=== PATIENT | male | born 1950 | race Caucasian/White ===

== ENCOUNTER → 2023-11-12 07:33 | Outpatient (REF) | payer MEDICARE, OTHER, SELFPAY ==
[2023-11-12 08:30] LABS: % Basophils 0.7 % (0-2); % Eosinophils 3.5 % (0-6); % Immature Granulocytes 0.3 % (0-0.5); % Lymphocytes 12.7 % (20.5-51.1); % Monocytes 10.4 % (1.7-9.3); % Neutrophils 72.4 % (42.2-75.2); Absolute Eosinophils 0.2 10^3/uL (0-0.7); Absolute Lymphocytes 0.7 10^3/uL (1.2-3.4); Absolute Monocytes 0.6 10^3/uL (0.1-0.6); Absolute Neutrophils 4.2 10^3/uL (1.4-6.5); Hematocrit 37.8 % (39.0-52.0); Hemoglobin 13.5 g/dL (13.0-18.0); Mean Corp Hgb Conc. 35.7 g/dL (33.0-37.0); Mean Corpuscular Hgb 29.9 pg (27.0-31.0); Mean Corpuscular Volume 83.6 fL (80.0-94.0); Mean Platelet Volume 10.7 fL (7.4-10.4); Nucleated Red Blood Cells % 0 % (-); Platelet Count 218 10^3/uL (130-400); Red Blood Cell Count 4.52 10^6/uL (4.70-6.10); Red Cell Dist. Width 12.4 % (11.5-14.5); White Blood Cell Count 5.8 10^3/uL (4.8-10.8)
[2023-11-12 09:19] LABS: ALT (SGPT) 71 U/L (0-50); AST (SGOT) 39 U/L (17-59); Alkaline Phosphatase 123 U/L (38-126); Blood Urea Nitrogen 83 mg/dl (9-20); Carbon Dioxide 17 mmol/L (22-30); Chloride 105 mmol/L (98-107); Glucose 121 mg/dl (70-99); HDL Cholesterol 54 mg/dl; LDL Cholesterol, Calculated 73 mg/dl; Potassium 4.6 mmol/L (3.5-5.1); Sodium 135 mmol/L (135-145); Total Bilirubin 0.7 mg/dl (0.2-1.3); Total Cholesterol 140 mg/dl (50-199); Total Protein 7.5 g/dl (6.3-8.2); Triglyceride 65 mg/dl (10-149); Very Low Density Lipoprotein 13 mg/dl (0-30); eGFR 21.87
== END ==
LOC: REG 07:33
PROVIDERS: ATTENDING PHYSICIAN Physician Assistant
DX: R42 Dizziness and giddiness (principal); I95.1 Orthostatic hypotension; I10 Essential (primary) hypertension; E78.00 Pure hypercholesterolemia, unspecified
CPT/HCPCS: 36415; 80053; 80061; 85025

== ENCOUNTER 2023-11-13 20:48 | Inpatient (IN) | payer MEDICARE, OTHER, SELFPAY ==
[2023-11-13] VITALS (7 sets, daily range): BP systolic 147–166; BP diastolic 80–89; BMI 21.2
[2023-11-13 17:06] LABS: % Basophils 0.6 % (0-2); % Eosinophils 2.4 % (0-6); % Immature Granulocytes 0.3 % (0-0.5); % Lymphocytes 14.7 % (20.5-51.1); % Monocytes 11.6 % (1.7-9.3); % Neutrophils 70.4 % (42.2-75.2); Absolute Eosinophils 0.2 10^3/uL (0-0.7); Absolute Lymphocytes 0.9 10^3/uL (1.2-3.4); Absolute Monocytes 0.7 10^3/uL (0.1-0.6); Absolute Neutrophils 4.4 10^3/uL (1.4-6.5); Hematocrit 35.5 % (39.0-52.0); Hemoglobin 12.9 g/dL (13.0-18.0); Mean Corp Hgb Conc. 36.3 g/dL (33.0-37.0); Mean Corpuscular Hgb 29.6 pg (27.0-31.0); Mean Corpuscular Volume 81.4 fL (80.0-94.0); Mean Platelet Volume 10.5 fL (7.4-10.4); Nucleated Red Blood Cells % 0 % (-); Platelet Count 228 10^3/uL (130-400); Red Blood Cell Count 4.36 10^6/uL (4.70-6.10); Red Cell Dist. Width 12.4 % (11.5-14.5); White Blood Cell Count 6.2 10^3/uL (4.8-10.8)
[2023-11-13 17:18] LABS: ALT (SGPT) 67 U/L (0-50); AST (SGOT) 38 U/L (17-59); Albumin 4.4 g/dl (3.5-5.0); Alkaline Phosphatase 138 U/L (38-126); Blood Urea Nitrogen 81 mg/dl (9-20); Calcium 9.4 mg/dl (8.4-10.2); Carbon Dioxide 14 mmol/L (22-30); Chloride 106 mmol/L (98-107); Glucose 119 mg/dl (70-99); Potassium 4.3 mmol/L (3.5-5.1); Sodium 130 mmol/L (135-145); Total Bilirubin 0.6 mg/dl (0.2-1.3); Total Protein 7.7 g/dl (6.3-8.2); eGFR 22.81
--- NOTE | 2023-11-13 18:01 | ED.GENMED ---
History of Present Illness
General
Chief Complaint: Abnormal Lab Value
Time Seen by Provider: 11/13/23 18:01
Travel History
Have you had any contact with someone who has COVID-19?: No
Do you have any symptoms of coronavirus? Fever > 100 degrees, chills, cough, shortness of breath, sore throat, loss of taste or smell, muscle aches, or headache?: No
History of Present Illness
History of Present Illness:
HPI: Patient came here at the request of his primary care doctor. The primary ordered blood work drawn yesterday that showed a creatinine of 2.9. This is acute. The patient states has been drinking plenty of fluid. He denies any diarrhea.
EXAM:
GENERAL: Well appearing in no distress
HEENT: Moist oral mucosa
CARDIOVASCULAR: No murmurs, normal heart rate and rhythm, No chest wall tenderness
PULMONARY: No respiratory distress, breath sounds are clear and equal
ABDOMEN: Soft with no peritoneal signs, no tenderness
NEUROLOGIC: Excellent strength all extremities, no coordination deficits
PSYCHIATRIC: Appropriate mental status, normal insight and judgement
EXTREMITIES: Nontender, no edema, moves all extremities equally
SKIN: No rash, no lesions
ED COURSE:
6:30 PM: I initially evaluated
NUMBER AND COMPLEXITY OF PROBLEMS ADDRESSED AT THE ENCOUNTER
� Chronic conditions affecting care: Aortic stenosis, atrial fibrillation on Eliquis, chronic gastritis on PPI
� Acute Exacerbation and/or Progression of Chronic Illness: This is an acute problem
� Differential Diagnosis includes: SCOTTIE, medical renal disease, dehydration
AMOUNT AND/OR COMPLEXITY OF DATA TO BE REVIEWED AND ANALYZED
� I performed an independent evaluation of and my interpretation is:
EKG:
CT:
X-rays:
Laboratory Studies: CBC relatively unremarkable, BUN 81, creatinine 2.8, bicarb 14, sodium 130
Other: Ultrasound imaging ordered but pending
� Review of other/old records: I reviewed old labs and has never had renal insufficiency in the past
� Clinical information was obtained by an independent historian: I spoke to the at bedside
� Prescriptions/Medications Considered but not given:
� Further testing considered but not performed:
RISK OF COMPLICATIONS AND/OR MORBIDITY OR MORTALITY OF PATIENT MANAGEMENT
� Social determinants of health affecting care: Lives at home
� Discussion with other providers: Hospitalist for admission around 7:10 PM
� Escalation of care including admission/observation vs risk of discharge considered: The patient will be admitted for SCOTTIE. He states he has been drinking plenty of fluid recently. Renal ultrasound pending.
Past History
Past History
ED Past Medical History: Arrthythmia (Paroxysmal atrial fibrillation), CAD, Cancer (Skin) and Other (Diverticulosis, aortic stenosis, colon polyps, Lyme's disease, BPH)
ED Past Surgical History: Cardiac (Bypass and aortic replacement with bovine valve) and Orthopedic
Social History
Tobacco: Former smoker
Alcohol: None
Drug: None
Living: with family
Employment: Employed
Family History
Family History: Other (Noncontributory)
Phy Exam
Physical Exam
Physical Exam:
See HPI
Course
Orders/Labs/Results
Orders:
Orders
11/13/23 16:56
Complete Blood Count/With Diff Urgent
Comprehensive Metabolic Panel Urgent
11/13/23 18:22
0.9% Sodium Chloride 1000 ml [Nss] 1,000 ml IV BOLUS
11/13/23 18:31
0.9% Sodium Chloride 1000 ml [Nss] 1,000 ml IV BOLUS
11/13/23 18:46
US Renal Only W/O Bladder Urgent
Comment:
Reason For Exam: scottie
11/13/23 19:31
EKG [Electrocardiogram (*1)] Stat
Reason for Study: Atrial Fibrillation
Abnormal Lab Results
11/13/23
16:56
RBC 4.36 L 10^6/uL
(4.70-6.10)
Hgb 12.9 L g/dL
(13.0-18.0)
Hct 35.5 L %
(39.0-52.0)
MPV 10.5 H fL
(7.4-10.4)
Absolute Lymphs (auto) 0.9 L 10^3/uL
(1.2-3.4)
Absolute Monos (auto) 0.7 H 10^3/uL
(0.1-0.6)
Lymphocytes % 14.7 L %
(20.5-51.1)
Monocytes % 11.6 H %
(1.7-9.3)
Sodium 130 L mmol/L
(135-145)
Carbon Dioxide 14 L* mmol/L
(22-30)
BUN 81 H mg/dl
(9-20)
Creatinine 2.8 H mg/dL
(0.7-1.3)
Glucose 119 H mg/dl
(70-99)
ALT 67 H U/L
(0-50)
Alkaline Phosphatase 138 H U/L
(38-126)
11/13/23 16:56
11/13/23 16:56
Vital Signs
Initial and Last Documented VS:
Initial Vital Signs
Temp Pulse Resp BP Pulse Ox
97.4 F 77 16 156/88 98
11/13/23 16:47 11/13/23 16:47 11/13/23 16:47 11/13/23 16:47 11/13/23 16:47
Last Documented Vital Signs
Temp Pulse Resp BP Pulse Ox
97.4 F 77 16 156/88 98
11/13/23 16:47 11/13/23 16:47 11/13/23 16:47 11/13/23 16:47 11/13/23 16:47
*Critical Care Note
Total Time (30-74mins, 75-104mins- exclusive of procedures): Not Applicable
ED Attending Note
-
Portions of this chart may have been created with voice recognition software.� Occasional wrong word or��sound alike� substitutions may have occurred due to the inherent limitations of voice recognition software.
Discharge Plan
Departure
Patient Disposition: Admit
Date of Disposition: 11/13/23
Time of Disposition: 19:32
Presentation/result/management discussed w/ accepting MD/DO: Hospitalist
Discharge Problem:
SCOTTIE (acute kidney injury)
Prescriptions:
No Action
finasteride 5 MG tablet
5 mg PO DAILY
metoprolol succinate 25 MG tablet extended release 24 hr
12.5 mg PO QPM
Eliquis 5 MG tablet
5 mg PO BID Qty: 60 0RF
sucralfate [Carafate] 1 gram Tablet
1 g PO AC
omeprazole 40 mg Capsule,Delayed Release(Dr/Ec)
40 mg PO DAILY
Referrals:
Carlos Aldana MD [Family Provider] -
Interventions
Interventions:
*Risk Screen - Suicide Last Done: 11/13/23 18:51
*General Assessment Last Done: 11/13/23 18:51
*Neglect/Abuse Screening Last Done: 11/13/23 18:51
ED- Fall Risk Assessment Last Done: 11/13/23 18:51
*ED COVID-19 Vaccine History Last Done: 11/13/23 16:47
[2023-11-13] MEDS: NSS 1000 IV (18:45)
--- NOTE | 2023-11-13 19:27 | HPS.HSE ---
Addendum entered and electronically signed by Cachorro Jaimes DO 11/13/23 21:13:
Patient seen and examined independently. Agree with findings and plan as set forth by TARA Major.
Patient is a 73y M with PMH significant for A-Fib, ASCVD and aortic stenosis who presents to ED for evaluation of abnormal lab work. Patient states that he has been feeling somewhat weak and intermittently dizzy / off-balance for the past few
weeks. He was seen by his PCP and sent for labs which were markedly abnormal. He was advised to present to the ED for further evaluation.
Patient states that he was started on PPI and Carafate in 07/2023 for GERD / gastritis symptoms. His symptom have improved - but not fully resolved. Patient also notes that his generic metoprolol changed manufacturers and he wonders if this might
be contributing to his recent symptoms / labs / etc.
Ass:
SCOTTIE
Non-Gapped Metabolic Acidosis
Mild Hyponatremia
GERD / Gastritis
Normocytic Anemia
ASCVD
Paroxysmal A-Fib
Aortic Stenosis
BPH
Plan:
Admit for further evaluation and treatment.
Hold outpatient meds acutely - especially PPI and Carafate.
IVFs overnight with supplemental bicarb.
Follow for improvement in labs / lytes.
Bladder scan protocol / follow I&Os.
Nephrology evaluation for additional work-up / recommendations.
Anemia evaluation / heme test stools.
Follow for improvement in weakness / dizziness with improvement in renal function / labs.
Original Note:
Family Physician
-
Family Physician: Carlos Aldana
Chief Complaint
-
abnormal blood work
History of Present Illness
73 year old with PMH for atrial fib, BPH, CAD, skin Ca, diverticulosis, aortic stenosis, colon polyps, lyme disease presented to us with abnormal blood work of creatine 2.9. patient stated, he was feeling fatigue, weak,dizzy for past few weeks. his
BP was fluctuating between very high and low. he was diagnosed with gastritis in July. since then he is on Carafate and and omeprazole. he is eating [place] diet. he lost about 15lbs. stated recently his stomach started burning. denied nausea,
vomiting and diarrhea. he had urinary frequency few week ago, but at that time 12-15 glasses of water. his urologist asked him to cut down on his water intake. he is drinking now 8 glasses of 6-8oz of water.denied fever, chills, chest pain, sob.
denied dysuria or hematuria.
yesterday he had an outpatient blood work which showed cr of 2.9. he was sent in by PCP. upon arrival noted metabolic acidosis, SCOTTIE. received 2l of normal saline. renal US pending. admitting for further management.
Medical History
Past Medical History
Past Medical History: Reports Other
Additional Past Medical History:
. Osteoarthritis.
. Hypertension.
Paroxysmal atrial fibrillation on Eliquis.
Aortic stenosis status post AVR, bioprosthetic, 2017..
Degenerative disk disease with spinal stenosis.
. History of lumbar angioma.
BPH.
.History of Lyme disease 2010.
.Colonic polyps.
Past Surgical History: Reports Other
Additional Past Surgical History:
Right shoulder arthroscopy,inguinal hernia,repair, bioprosthetic AVR, cardiac ablation, right hip replacement.
Social History
Tobacco: Former Smoker
Alcohol: None
Drug: None
Personal:
Living: With Family
Family History
Family History: Not pertinent
Allergies / Home Medications
Allergies reflects when Allergies were last updated in [facility].
Home Medications with original date entered in [facility]
Allergy/Medication List:
Allergies
Allergy/AdvReac Type Severity Reaction Status Date / Time
metaxalone Allergy cognitive Verified 11/13/23 16:50
impairment
oxycodone HCl [From Percocet] Allergy Nausea / Verified 11/13/23 16:50
Vomiting
Home Medications
finasteride 5 mg tablet 5 mg PO DAILY Urinary issue 01/18/17
metoprolol succinate 25 mg tablet,extended release 24 hr 12.5 mg PO QPM 08/29/21
apixaban 5 mg tablet (Eliquis) 5 mg PO BID #60 tabs 02/11/22
omeprazole 40 mg capsule,delayed release 40 mg PO DAILY 11/13/23
sucralfate 1 gram tablet (Carafate) 1 g PO AC 11/13/23
Review of Systems
-
Constitutional: Reports Weight Loss and Fatigue
EENT: Reports No Symptoms
Respiratory: Reports No Symptoms
Cardiac: Reports No Symptoms
Abdomen/GI: Reports Abdominal Pain (mid abdomen burning)
: Reports No Symptoms
Musculoskeletal: Reports No Symptoms
Skin: Reports No Symptoms
Neurological: Reports Dizzy and Weakness
Endocrine: Reports No Symptoms
Hematologic/Lymphatic: Reports No Symptoms
Psych: Reports No Symptoms
Physical Exam
Vital Signs
Vital Signs
Temp Pulse Resp BP Pulse Ox
97.4 F 77 16 156/88 98
11/13/23 16:47 11/13/23 16:47 11/13/23 16:47 11/13/23 16:47 11/13/23 16:47
Physical Exam
General: Well Developed, Well Nourished and No Apparent Distress
HEENT: NormoCephalic, Moist mucous membranes and Atraumatic
Respiratory: Clear
Cardiac: S1/S2 and Regular Rhythm; No Murmur or Rub
GI: Soft, Non Tender, Non Distended and Normal Bowel Sounds; No Organomegaly
Rectal: Deferred by Provider
Musculoskeletal: No Clubbing, No Cyanosis and No Edema
Skin: No Rash
Neuro: AO x 3 and Nonfocal/grossly intact
Psych: Calm
Laboratory Results
-
11/13/23 16:56
11/13/23 16:56
Laboratory Results
Total Bilirubin 0.6 mg/dl (0.2-1.3) 11/13/23 16:56
AST 38 U/L (17-59) 11/13/23 16:56
ALT 67 U/L (0-50) H 11/13/23 16:56
Alkaline Phosphatase 138 U/L (38-126) H 11/13/23 16:56
Data Reviewed
-
Lab Data: Labs Reviewed by me
Impression/Plan
-
#acute kidney injury/metabolic acidosis/hyponatremia likely dehydration/PPI use
-N 130, co2 14, bun 81, cr 2.8
-renal US Renal echotexture within normal limits. No shadowing calculus or hydronephrosis.
-fluids continued
-monitor BMP in am
-fluids continued
-monitor BMP in am
-bladder scan
#chronic gastritis
-still with mid abdominal burning
-hold PPI
-Carafate continued
-bland diet continued
#weakness/fatigue/dizzy likely from dehydration
-PT/OT consult
-obtain orthostatics
#acute anemia
-hgb 12.9
-heme test
-ctm
-no active bleeding
#BPH
-finasteride continued
#hxt of paroxysmal atrial fib
-eliquis continued
-metoprolol continued
-obtain EKG
#essential htn
-BP stable
#DVT prophylaxis
-eliquis
#CODE status
-full code
[2023-11-13 21:16] LABS: Osmolality Urine 202 mOsm/kg (300-900)
[2023-11-13 21:24] LABS: Urine Sodium 24 mmol/L (30-90)
[2023-11-13 21:37] LABS: Osmolality Serum 302 mOsm/kg (275-300)
[2023-11-13] MEDS: SODIUM BICARBONATE 1075 MEQ IV (22:39)
[2023-11-13 22:51] LABS: Urine Albumin Negative (Neg - Trace); Urine Bilirubin Negative (Negative); Urine Character Clear (Clear); Urine Color Straw; Urine Glucose Negative (Negative); Urine Ketone Negative (Negative); Urine Leukocyte Trace (Negative); Urine Nitrite Negative (Negative); Urine Occult Blood Negative (Negative); Urine Urobilinogen Negative (Neg - 1+)
[2023-11-13 23:03] LABS: Urine Bacteria Few (Negative); Urine Squamous Cell 0-2 /LPF (Few)
[2023-11-13 23:04] LABS: Urine Red Blood Cell 0-2 /HPF (0-2); Urine White Cell 0-2 /HPF (0-5)
[2023-11-14 03:36] VITALS: BP 133/76
[2023-11-14 07:00] VITALS: BP 130/79
[2023-11-14 07:07] LABS: Hematocrit 33.4 % (39.0-52.0); Hemoglobin 12.1 g/dL (13.0-18.0); Mean Corp Hgb Conc. 36.2 g/dL (33.0-37.0); Mean Corpuscular Hgb 29.3 pg (27.0-31.0); Mean Corpuscular Volume 80.9 fL (80.0-94.0); Platelet Count 197 10^3/uL (130-400); Red Blood Cell Count 4.13 10^6/uL (4.70-6.10); Red Cell Dist. Width 12.3 % (11.5-14.5); White Blood Cell Count 6.7 10^3/uL (4.8-10.8)
[2023-11-14 07:38] LABS: Blood Urea Nitrogen 78 mg/dl (9-20); Calcium 9.4 mg/dl (8.4-10.2); Carbon Dioxide 15 mmol/L (22-30); Chloride 111 mmol/L (98-107); Estimated Creatinine Clearance 21 ml/min; Glucose 97 mg/dl (70-99); Potassium 3.9 mmol/L (3.5-5.1); Sodium 139 mmol/L (135-145); eGFR 22.81
[2023-11-14] MEDS: PROSCAR 5 MG PO (09:10)
[2023-11-14] MEDS: ELIQUIS 5 MG PO ×2 (09:10→19:58)
[2023-11-14] MEDS: TOPROL XL 12.5 MG PO (10:02)
--- NOTE | 2023-11-14 10:02 | CM ---
CM following re: discharge planning.
Reviewed pt's chart, met with pt.
Pt is a 73 year old male, admitted with primary dx of SCOTTIE.
Pt reports he lives with spouse in a rancher house, 1 steps to get in and 5 steps up, has 2 supportive children. Pt described himself as independent in all areas [employer]. Pt stated he is aware of having kidney functional issue.
PCP: Carlos Aldana
Pharmacy: [facility]
D/C plan: home with anticipated no needs. Spouse to transport at discharge.
CM will follow with discharge plan updates as hospitalization progresses
--- NOTE | 2023-11-14 10:27 | W.PN.HOSP.TC ---
Today's Communication/Plan
-
.
Assessment / Plan
Assessment / Plan
Physical Exam
General: Well Developed, Well Nourished and No Apparent Distress
HEENT: Normocephalic, Moist mucous membranes and Atraumatic
Respiratory: Clear
Cardiac: S1/S2 and Regular Rhythm; No Murmur or Rub
GI: Soft, Non Tender, Non Distended and Normal Bowel Sounds; No Organomegaly
Rectal: Deferred by Provider
Musculoskeletal: No Clubbing, No Cyanosis and No Edema
Skin: No Rash
Neuro: AO x 3 and Nonfocal/grossly intact
Psych: Calm, no agitation.
#acute kidney injury/metabolic acidosis
Seems to have a progressive kidney disease
Renal US no signs of obstruction : echotexture within normal limits. No shadowing calculus or hydronephrosis.
Urine is bland, no proteinuria
AM BP 130/79
Might need renal biopsy and serological testing
c/w IVF
d/w nursing staff regarding bladder scan screening
Appreciate nephrology input
#chronic gastritis
-still with mid abdominal burning
-hold PPI
-Carafate continued
-bland diet continued
#weakness/fatigue/dizzy likely from dehydration
-PT/OT consult
-obtain orthostatics
#acute anemia
-hgb 12.9
-heme test
-ctm
-no active bleeding
#BPH
-finasteride continued
#hxt of paroxysmal atrial fib
-eliquis continued
-metoprolol continued
-obtain EKG
#essential htn
-BP stable
#DVT prophylaxis
-eliquis
#CODE status
-full code
Total time spent to see the patient, examine the patient on the floor, review data and lab results, discuss treatment plan with patient, nursing staff around 55 minutes
Anticipated Discharge: > 48 hours
Subjective/Interval History
-
Date of Service: November 14, 2023
He denies chest pain, flank pain , abdominal pain
No sob
No dysuria
Objective Data
-
Labs:
Laboratory Results
11/14/23
06:00
WBC 6.7
Hgb 12.1 L
Hct 33.4 L
Plt Count 197
Sodium 139 D
Potassium 3.9
Chloride 111 H
Carbon Dioxide 15 L
BUN 78 H
Creatinine 2.8 H
Glucose 97
Calcium 9.4
Vital Signs:
Vital Signs
Temp Pulse Resp BP Pulse Ox
98.0 F 68 17 130/79 98
11/14/23 07:00 11/14/23 07:00 11/14/23 07:00 11/14/23 07:00 11/14/23 07:00
I&O
11/13/23 11/14/23 11/15/23
06:59 06:59 06:59
Intake Total 800 / 800
Output Total 1075 / 1075
Balance -275 / -275
[2023-11-14 10:56] VITALS: BP 146/88
[2023-11-14] MEDS: SODIUM BICARBONATE 1075 MEQ IV (11:34)
--- NOTE | 2023-11-14 14:49 | W.CON.NEPH ---
Consultation
-
Date/Time Consultation Requested: 11/13/232135
Date/Time Consultation Performed: 11/14/23 1430
Requesting Provider: Kane Jimenez
Performing Provider: Mirella Styles
Reason for Consultation: SCOTTIE
Medical History
-
Chief Complaint: SCOTTIE
History of Present Illness:
73y M with PMH significant for A-Fib on eliquis and BB, ASCVD and aortic stenosis, was not feeling well since May after COVID. Underwent EGD in june and found to have gastritis for which he was given PPI and carafate. But his symptoms di dnot
improve still and saw his PCP and rand blood work which showed cr high at 2.9 and bicarb at 17 and was asked to come to ER. He had frequency of urine with drinking lot of fluids several weeks ago which improved with decreasing his fluid intake as
suggested by MARY. Patient also notes that his generic metoprolol changed manufacturers and he wonders if this might be contributing to his recent symptoms too. He denies any dysuria, no cp or sob, no n/v.
he has duodenal nodule for which has schedule to see GI in November. no NSAID use.
Past Medical History
Osteoarthritis.
. Hypertension.
�Paroxysmal atrial fibrillation on Eliquis.
�Aortic stenosis status post AVR, bioprosthetic, 2017..
�Degenerative disk disease with spinal stenosis.
. History of lumbar angioma.
�BPH.
.History of Lyme disease 2010.
.Colonic polyps.
Past Surgical History: Other (Right shoulder arthroscopy,inguinal hernia,repair, bioprosthetic AVR, cardiac ablation, right hip replacement.)
Social History
Tobacco: Former Smoker
Alcohol: None
Drug: None
Living: With Family
Family History
father with CKD and HD, DM, HTN who was from [place]
Allergies / Home Medications
Allergy/AdvReac Type Severity Reaction Status Date / Time
metaxalone Allergy cognitive Verified 11/13/23 16:50
impairment
oxycodone HCl [From Percocet] Allergy Nausea / Verified 11/13/23 16:50
Vomiting
Medication Instructions Recorded Confirmed Type
finasteride 5 mg tablet 5 mg PO DAILY Urinary issue 01/18/17 11/13/23 History
metoprolol succinate 25 mg 12.5 mg PO QPM Blood Pressure 08/29/21 11/13/23 History
tablet,extended release 24 hr
apixaban 5 mg tablet (Eliquis) 5 mg PO BID #60 tabs 02/11/22 11/13/23 Rx
omeprazole 40 mg capsule,delayed 40 mg PO DAILY GERD 11/13/23 11/13/23 History
release
sucralfate 1 gram tablet (Carafate) 1 g PO AC Gastrointestinal Issue 11/13/23 11/13/23 History
Review of Systems
-
all complete 12 point of ROS inquired and found negative other than stated in HPI
Physical Exam
Vital Signs
Vital Signs
Temp Pulse Resp BP Pulse Ox
98.0 F 83 17 146/88 99
11/14/23 10:56 11/14/23 10:56 11/14/23 10:56 11/14/23 10:56 11/14/23 10:56
Lab Results
WBC 6.7 10^3/uL (4.8-10.8) 11/14/23 06:00
RBC 4.13 10^6/uL (4.70-6.10) L 11/14/23 06:00
Hgb 12.1 g/dL (13.0-18.0) L 11/14/23 06:00
Hct 33.4 % (39.0-52.0) L 11/14/23 06:00
Plt Count 197 10^3/uL (130-400) 11/14/23 06:00
Sodium 139 mmol/L (135-145) D 11/14/23 06:00
Potassium 3.9 mmol/L (3.5-5.1) 11/14/23 06:00
Chloride 111 mmol/L (98-107) H 11/14/23 06:00
Carbon Dioxide 15 mmol/L (22-30) L 11/14/23 06:00
BUN 78 mg/dl (9-20) H 11/14/23 06:00
Creatinine 2.8 mg/dL (0.7-1.3) H 11/14/23 06:00
eGFR 22.81 11/14/23 06:00
Glucose 97 mg/dl (70-99) 11/14/23 06:00
Calcium 9.4 mg/dl (8.4-10.2) 11/14/23 06:00
Albumin 4.4 g/dl (3.5-5.0) 11/13/23 16:56
US Renal Only W/O Bladder
PROCEDURE: US Renal Only W/O Bladder
CLINICAL INDICATION: scottie
TECHNIQUE: An ultrasound examination of the kidneys was performed.
COMPARISON: Ultrasound abdomen 08/06/2023. Renal/bladder ultrasound 07/03/2015.
FINDINGS:
RIGHT KIDNEY:
Size: 12.7 x 5.5 x 5.3 cm.
No shadowing calculus or hydronephrosis.
No sonographically demonstrable mass.
LEFT KIDNEY:
Size: 10.7 x 5.7 x 5.6 cm.
No shadowing calculus or hydronephrosis.
No sonographically demonstrable mass.
IMPRESSION:
Renal echotexture within normal limits. No shadowing calculus or hydronephrosis.
Electronically signed by Gunner Sánchez MD 11/13/2023 7:30 PM
Physical Exam
General: Awake, Alert, Oriented and AOx3
HEENT: EOMI and Anicteric
Respiratory: Clear, Normal Excursion and Nonlabored Respirations
Cardiac: S1/S2, Regular Rate/Rhythm and No Edema
Abdomen: Soft, Nontender and Nondistended
Musculoskeletal: No Clubbing, No Cyanosis and No Edema
Skin: No Rash
Neuro: Nonfocal/Grossly Intact
Psych: Mood/afflect pleasant, Insight/judgement good and Appropriate
Assessment/Plan
-
IMP:
SCOTTIE
Non-Gapped Metabolic Acidosis
Mild Hyponatremia
GERD / Gastritis
Normocytic Anemia
ASCVD
Paroxysmal A-Fib
Aortic Stenosis
BPH
hypoantremia
Plan:
Admit for abnormal labs
SCOTTIE-suspect AIN from PPI-started in June
relatively bland UA and no hydro on US , check U eosinophils
will consider serologies and paraprotein w/u
BP stable with out hypotension
check U pcr , check bladder scan
cont bicarb IVF for met acidosis -change to 150meq bicarb
avoid nephrotoxins and hold PPI
ok for pepcid
d/w pt and at bedside
Data Reviewed
-
Radiology: Report Reviewed by me
Labs: Labs Reviewed by me and Discussed with Nurse
[2023-11-14 15:00] VITALS: BP 148/91
[2023-11-14 15:40] VITALS: BMI 21.2
[2023-11-14] MEDS: SODIUM BICARBONATE 1150 MEQ IV (16:13)
[2023-11-14 17:02] LABS: Protein/creatinine Ratio 0.4; Urine Protein 19 mg/dl
[2023-11-14 17:03] LABS: Body Fluid for Eosinophils No Eosinophils seen
[2023-11-14 19:15] VITALS: BP 145/77
[2023-11-15] VITALS (9 sets, daily range): BP systolic 124–152; BP diastolic 74–90; PULSE 70–98; BMI 21.6
[2023-11-15 06:51] LABS: Hematocrit 33.6 % (39.0-52.0); Hemoglobin 12.4 g/dL (13.0-18.0); Mean Corp Hgb Conc. 36.9 g/dL (33.0-37.0); Mean Corpuscular Hgb 29.9 pg (27.0-31.0); Mean Platelet Volume 10.9 fL (7.4-10.4); Platelet Count 203 10^3/uL (130-400); Red Blood Cell Count 4.15 10^6/uL (4.70-6.10); Red Cell Dist. Width 12.4 % (11.5-14.5); White Blood Cell Count 6.3 10^3/uL (4.8-10.8)
[2023-11-15 07:17] LABS: Blood Urea Nitrogen 70 mg/dl (9-20); Calcium 9.5 mg/dl (8.4-10.2); Carbon Dioxide 21 mmol/L (22-30); Chloride 104 mmol/L (98-107); Estimated Creatinine Clearance 22 ml/min; Glucose 116 mg/dl (70-99); Potassium 3.6 mmol/L (3.5-5.1); Sodium 138 mmol/L (135-145); eGFR 23.83
[2023-11-15] MEDS: PROSCAR 5 MG PO (07:47)
[2023-11-15] MEDS: ELIQUIS 5 MG PO ×2 (07:47→19:40)
[2023-11-15] MEDS: TOPROL XL 12.5 MG PO (07:47)
--- NOTE | 2023-11-15 08:13 | W.PN.HOSP.TC ---
Today's Communication/Plan
-
Please see below
If labs continue to improve, possible discharge tomorrow
Assessment / Plan
Assessment / Plan
Physical Exam
Physical Exam was not performed as patient was not present in his room at the time of attempted patient encounter.
Assessment/Plan
#Acute kidney injury - likely PPI-related
#Metabolic acidosis
Seems to have a progressive kidney disease
Renal US no signs of obstruction : echotexture within normal limits. No shadowing calculus or hydronephrosis.
Urine is bland, no proteinuria
Might need renal biopsy (if creatinine fails to improve) inpatient vs. outpatient
Serological testing - follow-up
Continue bicarb with sterile water IV fluids
c/w IVF
d/w nursing staff regarding bladder scan screening
Appreciate nephrology input
#chronic gastritis
#GERD
-still with mid abdominal burning
-Stop PPI; PPI was started in June 2023 and is thought to be causing patient's AIN and SCOTTIE
-Continue Pepcid
-Carafate held
-bland diet continued
#weakness/fatigue/dizzy likely from dehydration
#Orthostatic Hypotension
-PT/OT consult
-Recheck orthostatics
#acute anemia
-Check iron studies
-Check vitamin B12
-ctm
-no active bleeding
#BPH
-finasteride continued
#History of of paroxysmal atrial fibrillation
-eliquis continued
-metoprolol continued
#essential htn
-BP stable
#DVT prophylaxis
-eliquis
#CODE status
-full code
Anticipated Discharge: 24 - 48 hours
Subjective/Interval History
-
Date of Service: November 15, 2023
Patient was not present in his room at the time of attempted patient encounter. Chart reviewed.
Objective Data
-
Labs:
Laboratory Results
11/15/23
06:17
WBC 6.3
Hgb 12.4 L
Hct 33.6 L
Plt Count 203
Sodium 138
Potassium 3.6
Chloride 104
Carbon Dioxide 21 L
BUN 70 H
Creatinine 2.7 H
Glucose 116 H
Calcium 9.5
Vital Signs:
Vital Signs
Temp Pulse Resp BP Pulse Ox
98.0 F 76 17 147/80 99
11/15/23 07:00 11/15/23 07:47 11/15/23 07:00 11/15/23 07:47 11/15/23 07:00
I&O
11/14/23 11/15/23 11/16/23
06:59 06:59 06:59
Intake Total 800 / 800 960 / 960
Output Total 1075 / 1075 2720 / 2720
Balance -275 / -275 -1760 / -1760
[2023-11-15] MEDS: SODIUM BICARBONATE 1150 MEQ IV (11:12)
--- NOTE | 2023-11-15 11:48 | W.PN.NEPH.PH ---
Today's Communication / Plan
-
pepcid
Assessment/Plan
-
IMP:
SCOTTIE
Non-Gapped Metabolic Acidosis
Mild Hyponatremia
GERD / Gastritis
Normocytic Anemia
ASCVD
Paroxysmal A-Fib
Aortic Stenosis
BPH
hypoantremia
Plan:
-likely AIN/PPI related
-check serologies
-d/w pt renal bx if Cr fails to improve. but could be done as outpatient
-if Cr stable, could follow trend as outpatient
-start pepcid
-no more PPI
-
-
Date of Service: November 15, 2023
CC / HPI / ROS
-
Chief Complaint:
SCOTTIE
History of Present Illness:
SCOTTIE/Cr stable at 2.7
BP stable high
nonoliguric
no LH
Review of Systems:
no CP/SOB
still with gastritis pain
Labs
-
Labs:
WBC 6.3 10^3/uL (4.8-10.8) 11/15/23 06:17
RBC 4.15 10^6/uL (4.70-6.10) L 11/15/23 06:17
Hgb 12.4 g/dL (13.0-18.0) L 11/15/23 06:17
Hct 33.6 % (39.0-52.0) L 11/15/23 06:17
Plt Count 203 10^3/uL (130-400) 11/15/23 06:17
Sodium 138 mmol/L (135-145) 11/15/23 06:17
Potassium 3.6 mmol/L (3.5-5.1) 11/15/23 06:17
Chloride 104 mmol/L (98-107) 11/15/23 06:17
Carbon Dioxide 21 mmol/L (22-30) L 11/15/23 06:17
BUN 70 mg/dl (9-20) H 11/15/23 06:17
Creatinine 2.7 mg/dL (0.7-1.3) H 11/15/23 06:17
eGFR 23.83 11/15/23 06:17
Glucose 116 mg/dl (70-99) H 11/15/23 06:17
Calcium 9.5 mg/dl (8.4-10.2) 11/15/23 06:17
Albumin 4.4 g/dl (3.5-5.0) 11/13/23 16:56
Physical Exam
-
Vital Signs:
Vital Signs
Temp Pulse Resp BP Pulse Ox
98.0 F 76 17 151/85 99
11/15/23 11:00 11/15/23 11:00 11/15/23 11:00 11/15/23 11:00 11/15/23 11:00
Cardiovascular:: Regular rate and rhythm
Respiratory:: Bilateral: CTA
Lung Excursion:: Normal
Abdomen:: Nontender and Soft
Bowel Sounds:: Normal
Extremity Edema:: None: Bilateral:
[2023-11-15] MEDS: PEPCID 10 MG PO (12:19)
[2023-11-15 14:04] LABS: Complement C3 100 mg/dl (88-165)
[2023-11-15 14:19] LABS: Anti Streptolysin Negative (Negative)
--- NOTE | 2023-11-15 15:53 | PN.CDI ---
CDI
- -
CDI:
Physician Documentation Request
Admit Date: 11/13/23 20:48
Dear Doctor Jean Claude,
Clinical Indicators:
Patient admitted with SCOTTIE.
11/14 note/assessment: -'Significant 15lb, 10.4% weight loss x 3 months due to dietary change.'
-'Pt meets criteria for severe protein calorie malnutrition due to >7.5% wt loss x
3months, prolonged inadequate intake <75% est needs >1 month.'
Based on the information, which of the following most accurately represents the patient's nutritional status?
Severe Protein Calorie Malnutrition
Other (please specify)
[place] Criteria ([facility] Hospitalist 2017)
2 or more criteria must be present for either
non severe or severe malnutrition
Note that the criteria differs related to the
presence of an acute or chronic illness
Acute Illness Chronic Illness
Energy Intake Non Severe: <75% for >7 days Non Severe: <75% for >1 month
Severe: <50% for >5 days Severe: <75% for >1 month
Weight Loss Non Severe: 1-2% over 1 week Non Severe: 5% over 1 month
5% over 1 month 7.5% over 3 months
7.5% over 3 months 10% over 6 months
1 year N/A 20% over 1 year
Severe: >2% over 1 week Severe: >5% over 1 month
>5% over 1 month >7.5% over 3 months
>7.5% over 3 months >10% over 6 months
1 year N/A >20% over 1 year
Body Fat Non Severe: Mild Decrease Non Severe: Mild Loss
Severe: Moderate Decrease Severe: Severe Loss
Muscle Mass Non Severe: Mild Decrease Non Severe: Mild Loss
Severe: Moderate Decrease Severe: Severe Loss
Fluid Accumulation Non Severe: Mild Accumulation Non Severe: Mild Accumulation
Severe: Moderate to severe Severe: Moderate to severe
accumulation accumulation
Reduced Stock Handler Strength Non Severe: N/A Non Severe: N/A
Severe: Measurably reduced Severe: Measurably reduced
Additional criteria that can be used to Determine if Mild or Moderate Malnutrition ([employer]ck Manual 2018)
Mild Moderate Severe
Albumin gm/dl <3.0 gm/dl <2.5 gm/dl <2.0 gm/dl
Pre Albumin mg/dl <15 gm/dl <10 mg/dl <5.0 mg/dl
BMI <18.5 <17 <16
Use of terms such as suspected, likely, concern for, or probable (associated with a specific diagnosis that is being evaluated, monitored, or treated as if it exists) are acceptable and can be coded in the inpatient setting, when documented at the
time of discharge.
Thank you,
JEAN PAUL Mccabe RN
CDI Specialist
available via tiger text
Please use your independent medical judgment in providing your response.
[2023-11-16 03:05] VITALS: BP 135/75
[2023-11-16 06:43] LABS: Hematocrit 31.9 % (39.0-52.0); Hemoglobin 11.4 g/dL (13.0-18.0); Mean Corp Hgb Conc. 35.7 g/dL (33.0-37.0); Mean Corpuscular Hgb 29.3 pg (27.0-31.0); Mean Platelet Volume 11.1 fL (7.4-10.4); Platelet Count 185 10^3/uL (130-400); Red Blood Cell Count 3.89 10^6/uL (4.70-6.10); Red Cell Dist. Width 12.4 % (11.5-14.5); White Blood Cell Count 5.5 10^3/uL (4.8-10.8)
[2023-11-16 07:16] LABS: Blood Urea Nitrogen 60 mg/dl (9-20); Calcium 9.3 mg/dl (8.4-10.2); Carbon Dioxide 24 mmol/L (22-30); Chloride 104 mmol/L (98-107); Estimated Creatinine Clearance 25 ml/min; Glucose 105 mg/dl (70-99); Potassium 3.5 mmol/L (3.5-5.1); Sodium 138 mmol/L (135-145); eGFR 27.45
[2023-11-16 07:42] VITALS: BP 148/92
[2023-11-16] MEDS: TOPROL XL 12.5 MG PO (07:47)
[2023-11-16] MEDS: PEPCID 10 MG PO (07:47)
[2023-11-16] MEDS: PROSCAR 5 MG PO (07:49)
[2023-11-16] MEDS: ELIQUIS 5 MG PO (07:49)
[2023-11-16 10:10] LABS: Vitamin B12 731 pg/ml (239-931)
[2023-11-16 11:18] VITALS: BP 144/80
--- NOTE | 2023-11-16 11:29 | W.PN.NEPH.PH ---
Today's Communication / Plan
-
follow BMP
Assessment/Plan
-
IMP:
SCOTTIE
Non-Gapped Metabolic Acidosis
Mild Hyponatremia
GERD / Gastritis
Normocytic Anemia
ASCVD
Paroxysmal A-Fib
Aortic Stenosis
BPH
hypoantremia
Plan:
-likely AIN/PPI related
-await serologies
-given improving Cr, will opt to postpone/not pursue kidney bx
-BMP or wednesday
-continue pepcid
-no more PPI
-
-
Date of Service: November 16, 2023
CC / HPI / ROS
-
Chief Complaint:
SCOTTIE
History of Present Illness:
SCOTTIE/Cr down to 2.4
BP stable high
nonoliguric
no LH
Review of Systems:
no CP/SOB
Labs
-
Labs:
WBC 5.5 10^3/uL (4.8-10.8) 11/16/23 05:48
RBC 3.89 10^6/uL (4.70-6.10) L 11/16/23 05:48
Hgb 11.4 g/dL (13.0-18.0) L 11/16/23 05:48
Hct 31.9 % (39.0-52.0) L 11/16/23 05:48
Plt Count 185 10^3/uL (130-400) 11/16/23 05:48
Sodium 138 mmol/L (135-145) 11/16/23 05:48
Potassium 3.5 mmol/L (3.5-5.1) 11/16/23 05:48
Chloride 104 mmol/L (98-107) 11/16/23 05:48
Carbon Dioxide 24 mmol/L (22-30) 11/16/23 05:48
BUN 60 mg/dl (9-20) H 11/16/23 05:48
Creatinine 2.4 mg/dL (0.7-1.3) H 11/16/23 05:48
eGFR 27.45 11/16/23 05:48
Glucose 105 mg/dl (70-99) H 11/16/23 05:48
Calcium 9.3 mg/dl (8.4-10.2) 11/16/23 05:48
Albumin 4.4 g/dl (3.5-5.0) 11/13/23 16:56
Physical Exam
-
Vital Signs:
Vital Signs
Temp Pulse Resp BP Pulse Ox
97.9 F 69 18 144/80 98
11/16/23 11:18 11/16/23 11:18 11/16/23 11:18 11/16/23 11:18 11/16/23 11:18
Cardiovascular:: Regular rate and rhythm
Respiratory:: Bilateral: Coarse
Lung Excursion:: Normal
Abdomen:: Nontender and Soft
Bowel Sounds:: Normal
Extremity Edema:: None: Bilateral:
[2023-11-16 14:39] LABS: Iron 148 ug/dl (49-181)
[2023-11-16 14:48] LABS: Percent Saturation 66 % (20-50); Total Iron Binding Capacity 223 ug/dl (261-462)
--- NOTE | 2023-11-16 14:50 | CM ---
Reviewed chart, PT. Patient at baseline. Plan remains for home when stable.
Plan: Case management will continue to follow and assist with discharge planning. Home when stable.
[2023-11-16 15:00] VITALS: BP 145/79
--- NOTE | 2023-11-16 16:30 | W.PN.HOSP.TC ---
Addendum entered and electronically signed by Reginaldo Silverio MD 11/19/23 09:01:
Correction, physical exam was performed on 11/16/23, as below:
Physical Exam
General: Well Developed, Well Nourished and No Apparent Distress
HEENT: Normocephalic, Moist mucous membranes and Atraumatic
Respiratory: Clear
Cardiac: S1/S2 and Regular Rhythm
GI: Soft, Non Tender, Non Distended and Normal Bowel Sounds
Musculoskeletal: No Cyanosis and No Edema
Skin: Warm. Dry.
Neuro: AAO x 3 and Nonfocal/grossly intact
Psych: Calm, no agitation.
Original Note:
Today's Communication/Plan
-
Discharge today
Assessment / Plan
Assessment / Plan
Physical Exam
Physical Exam was not performed as patient was not present in his room at the time of attempted patient encounter.
Assessment/Plan
#Acute kidney injury - likely PPI-related
#Metabolic acidosis
Seems to have a progressive kidney disease
Renal US no signs of obstruction : echotexture within normal limits. No shadowing calculus or hydronephrosis.
Urine is bland, no proteinuria
Might need renal biopsy (if creatinine fails to improve) outpatient
Serological testing - follow-up
Continue bicarb with sterile water IV fluids
c/w IVF
d/w nursing staff regarding bladder scan screening
Appreciate nephrology input
-Recheck BMP outpatient in 2 days
#chronic gastritis
#GERD
-still with mid abdominal burning
-Stop PPI; PPI was started in June 2023 and is thought to be causing patient's AIN and SCOTTIE
-Continue Pepcid
-Carafate held
-bland diet continued
#weakness/fatigue/dizzy likely from dehydration
#Orthostatic Hypotension - RESOLVED
-PT/OT consult
-Recheck orthostatics - negative
#acute anemia
-Iron studies noted
-Vitamin B12 okay
-ctm
-no active bleeding
#BPH
-finasteride continued
#History of of paroxysmal atrial fibrillation
-eliquis continued
-metoprolol continued
#Essential hypertension
-BP stable
#Severe Protein Calorie Malnutrition
#DVT prophylaxis
-eliquis
#CODE status
-full code
More than 30 minutes spent in discharge including
Final examination of the patient
Summarizing hospital stay
Instructions for continuing care to all relevant caregivers
Preparation of discharge records, prescriptions, and referral forms
Total time spent (in minutes): 39
Anticipated Discharge: Today
Subjective/Interval History
-
Date of Service: November 16, 2023
Objective Data
-
Labs:
Laboratory Results
11/16/23
05:48
WBC 5.5
Hgb 11.4 L
Hct 31.9 L
Plt Count 185
Sodium 138
Potassium 3.5
Chloride 104
Carbon Dioxide 24
BUN 60 H
Creatinine 2.4 H
Glucose 105 H
Calcium 9.3
Vital Signs:
Vital Signs
Temp Pulse Resp BP Pulse Ox
97.5 F 69 18 145/79 99
11/16/23 15:00 11/16/23 15:00 11/16/23 15:00 11/16/23 15:00 11/16/23 15:00
I&O
11/15/23 11/16/23 11/17/23
06:59 06:59 06:59
Intake Total 960 / 960 2220 / 2220
Output Total 2720 / 2720 2475 / 2475
Balance -1760 / -1760 -255 / -255
--- NOTE | 2023-11-16 16:51 | W.DS.TRANS ---
DC Summary - Line Department Supervisor
-
Discharge Instructions:
Sleep Apnea Risk Intermediate
Discharge Diagnosis/Procedures #Acute kidney injury - likely Proton Pump
Inhibitor-related
#Metabolic acidosis
#Chronic gastritis
#Gastroesophageal Reflux Disease
#Weakness/fatigue/dizzy likely from dehydration
#Orthostatic Hypotension - RESOLVED
#Acute anemia
#Benign Prostatic Hyperplasia
#History of of paroxysmal atrial fibrillation
#Essential hypertension
#Severe Protein Calorie Malnutrition
Diet Low Cholesterol,Low Sodium
Activity As tolerated
Driving Restrictions Not until seen by your Dr
Blood Work Recheck CBC and BMP with your primary care
provider in 2 days
Specialty Instructions Weigh Daily
Instructions:
Stand-Alone Forms:
Changes to Home Medications: Yes
Discharge Medications:
DC Medications w/original date entered in [place] [facility]
finasteride 5 mg tablet 5 mg PO DAILY Urinary issue 01/18/17
metoprolol succinate 25 mg tablet,extended release 24 hr 12.5 mg PO QPM Blood Pressure 08/29/21
apixaban 5 mg tablet (Eliquis) 5 mg PO BID #60 tabs 02/11/22
sucralfate 1 gram tablet (Carafate) 1 g PO AC Gastrointestinal Issue 11/13/23
famotidine 20 mg tablet 10 mg PO DAILY #30 tabs 11/16/23
Home Medication Changes
New Medications
Famotidine
Hold
Carafate
Stopped
Omeprazole
Pending Results: Yes
Additional Pending Results:
Serology studies
Total time spent discharging patient (in min): 39
[2023-11-18 02:02] LABS: Myeloperoxidase Antibody 0 AU/mL (0-19); Serine Protease-3, IgG 0 AU/mL (0-19)
[2023-11-18 04:07] LABS: ANA, IgG Reflex to HEp-2 None Detected (None Detected)
--- NOTE | 2023-11-19 08:51 | W.DCSUMMARY ---
Discharge Summary
Discharge Data
Date of Admission: 11/13/23
Date of Discharge: 11/16/23
Total time spent discharging patient (in min): 39
-
Pending Results: Yes
Additional Pending Results:
Serology results
Hospital Course
73 y/o male who presented with abnormal blood work of elevated creatinine 2.9, as well as fatigue, weakness and dizziness over the past several weeks. Patient was diagnosed with acute kidney injury and hyponatremia. Nephrology was consulted and
their thought was patient had acute interstitial nephritis from his proton pump inhibitor that was started in June 2023. Patient received bicarbonate intravenous fluids for metabolic acidosis. Patient's proton pump inhibitor was stopped and
patient was started on Pepcid. Patient's creatinine improved and he was stable for discharge. He would have to follow-up closely outpatient with his inspector watch train.
Discharge Plan
-
Patient Disposition: Home (Routine Discharge)
Discharge Diagnosis/Procedures: #Acute kidney injury - likely Proton Pump Inhibitor-related
#Metabolic acidosis
#Chronic gastritis
#Gastroesophageal Reflux Disease
#Weakness/fatigue/dizzy likely from dehydration
#Orthostatic Hypotension - RESOLVED
#Acute anemia
#Benign Prostatic Hyperplasia
#History of of paroxysmal atrial fibrillation
#Essential hypertension
#Severe Protein Calorie Malnutrition
Condition: Fair
Diet: Low Cholesterol and Low Sodium
Activity: As tolerated
Driving Restrictions: Not until seen by your Dr
Blood Work: Recheck CBC and BMP with your primary care provider in 2 days
Specialty Instructions: Weigh Daily- Call MD for wt gain/loss 3 lbs overnight/5 lbs in 1 week
Referrals:
Carlos Aldana MD [Family Provider] - in two to three days
Prescriptions:
New
famotidine 20 mg Tablet
10 mg PO DAILY Qty: 30 1RF
Continued
finasteride 5 MG tablet
5 mg PO DAILY
metoprolol succinate 25 MG tablet extended release 24 hr
12.5 mg PO QPM
Eliquis 5 MG tablet
5 mg PO BID Qty: 60 0RF
Held
sucralfate [Carafate] 1 gram Tablet
1 g PO AC
Hold Instructions: Resume on 11/23/23. Resume only if your outpatient physician says it is okay to resume.
Discontinued
omeprazole 40 mg Capsule,Delayed Release(Dr/Ec)
40 mg PO DAILY
Discharge Orders:
Discharge Patient (As Directed); Ordered 11/16/23
Ordered By: Reginaldo Silverio
Discharge Date and Time
Discharge Date/Time: 11/16/23 17:00
== END 2023-11-16 17:00 | disposition home or self-care (01) | DRG 682 ==
LOC: 3 WEST ACU 20:48
PROVIDERS: Registered Nurse; Specialist; ADMITTING PHYSICIAN Hospitalist; ATTENDING PHYSICIAN Hospitalist; CONSULT PHYSICIAN Internal Medicine; EMERGENCY PHYSICIAN Emergency Medicine; FAMILY PHYSICIAN Family Medicine
DX: N17.9 Acute kidney failure, unspecified (principal); E43 Unspecified severe protein-calorie malnutrition; E87.20 Acidosis, unspecified; E87.1 Hypo-osmolality and hyponatremia; I35.0 Nonrheumatic aortic (valve) stenosis; I48.0 Paroxysmal atrial fibrillation; K29.50 Unspecified chronic gastritis without bleeding; E86.0 Dehydration; I25.10 Atherosclerotic heart disease of native coronary artery without angina pectoris; K21.9 Gastro-esophageal reflux disease without esophagitis; D64.9 Anemia, unspecified; M19.90 Unspecified osteoarthritis, unspecified site; I10 Essential (primary) hypertension; K31.9 Disease of stomach and duodenum, unspecified; M48.00 Spinal stenosis, site unspecified; I95.1 Orthostatic hypotension; N40.0 Benign prostatic hyperplasia without lower urinary tract symptoms; Z85.828 Personal history of other malignant neoplasm of skin; Z79.01 Long term (current) use of anticoagulants; Z87.891 Personal history of nicotine dependence; Z86.010 Personal history of colon polyps; Z96.641 Presence of right artificial hip joint; Z95.3 Presence of xenogenic heart valve; Z88.5 Allergy status to narcotic agent; Z88.8 Allergy status to other drugs, medicaments and biological substances; Z83.3 Family history of diabetes mellitus; Z82.49 Family history of ischemic heart disease and other diseases of the circulatory system; Z68.21 Body mass index [BMI] 21.0-21.9, adult
CPT/HCPCS: 36415; 76775; 80048; 80053; 80061; 81003; 81015; 81099; 82570; 82607; 82728; 83516; 83540; 83550; 83930; 83935; 84156; 84300; 85025; 85027; 86038; 86063; 86160; 93005; 96360; 97161; 99285; J7030

== ENCOUNTER → 2023-11-18 07:32 | Outpatient (REF) | payer MEDICARE, OTHER, SELFPAY ==
[2023-11-18 08:03] LABS: % Basophils 0.6 % (0-2); % Eosinophils 3.6 % (0-6); % Immature Granulocytes 0.4 % (0-0.5); % Lymphocytes 20.4 % (20.5-51.1); % Monocytes 10.2 % (1.7-9.3); % Neutrophils 64.8 % (42.2-75.2); Absolute Eosinophils 0.2 10^3/uL (0-0.7); Absolute Lymphocytes 1.1 10^3/uL (1.2-3.4); Absolute Monocytes 0.5 10^3/uL (0.1-0.6); Absolute Neutrophils 3.4 10^3/uL (1.4-6.5); Hematocrit 34.1 % (39.0-52.0); Mean Corp Hgb Conc. 35.2 g/dL (33.0-37.0); Mean Corpuscular Hgb 29.2 pg (27.0-31.0); Mean Platelet Volume 10.1 fL (7.4-10.4); Nucleated Red Blood Cells % 0 % (-); Platelet Count 192 10^3/uL (130-400); Red Blood Cell Count 4.11 10^6/uL (4.70-6.10); Red Cell Dist. Width 12.4 % (11.5-14.5); White Blood Cell Count 5.3 10^3/uL (4.8-10.8)
[2023-11-18 08:34] LABS: Blood Urea Nitrogen 53 mg/dl (9-20); Calcium 9.3 mg/dl (8.4-10.2); Carbon Dioxide 27 mmol/L (22-30); Chloride 105 mmol/L (98-107); Glucose 117 mg/dl (70-99); Potassium 3.8 mmol/L (3.5-5.1); Sodium 136 mmol/L (135-145); eGFR 28.89
== END ==
LOC: REG 07:32
PROVIDERS: ATTENDING PHYSICIAN Physician Assistant
DX: N17.9 Acute kidney failure, unspecified (principal); E87.20 Acidosis, unspecified; I10 Essential (primary) hypertension
CPT/HCPCS: 36415; 80048; 85025

== ENCOUNTER → 2023-11-22 10:16 | Outpatient (REF) | payer MEDICARE, OTHER, SELFPAY ==
[2023-11-22 11:09] LABS: % Basophils 0.9 % (0-2); % Eosinophils 2.4 % (0-6); % Immature Granulocytes 0.4 % (0-0.5); % Lymphocytes 17.9 % (20.5-51.1); % Monocytes 11.9 % (1.7-9.3); % Neutrophils 66.5 % (42.2-75.2); Absolute Eosinophils 0.1 10^3/uL (0-0.7); Absolute Lymphocytes 0.8 10^3/uL (1.2-3.4); Absolute Monocytes 0.5 10^3/uL (0.1-0.6); Hematocrit 32.4 % (39.0-52.0); Hemoglobin 11.2 g/dL (13.0-18.0); Mean Corp Hgb Conc. 34.6 g/dL (33.0-37.0); Mean Corpuscular Hgb 29.5 pg (27.0-31.0); Mean Corpuscular Volume 85.3 fL (80.0-94.0); Mean Platelet Volume 10.9 fL (7.4-10.4); Nucleated Red Blood Cells % 0 % (-); Platelet Count 154 10^3/uL (130-400); Red Cell Dist. Width 12.4 % (11.5-14.5); White Blood Cell Count 4.5 10^3/uL (4.8-10.8)
[2023-11-22 11:57] LABS: ALT (SGPT) 78 U/L (0-50); AST (SGOT) 46 U/L (17-59); Albumin 3.9 g/dl (3.5-5.0); Alkaline Phosphatase 78 U/L (38-126); Blood Urea Nitrogen 66 mg/dl (9-20); Calcium 9.2 mg/dl (8.4-10.2); Carbon Dioxide 24 mmol/L (22-30); Chloride 104 mmol/L (98-107); Glucose 95 mg/dl (70-99); Potassium 4.7 mmol/L (3.5-5.1); Sodium 138 mmol/L (135-145); Total Bilirubin 0.4 mg/dl (0.2-1.3); Total Protein 6.6 g/dl (6.3-8.2); eGFR 34.16
== END ==
LOC: REG 10:16
PROVIDERS: ATTENDING PHYSICIAN Physician Assistant
DX: N17.9 Acute kidney failure, unspecified (principal); D64.9 Anemia, unspecified
CPT/HCPCS: 36415; 80053; 85025

== ENCOUNTER → 2023-11-25 06:26 | Outpatient (REF) | payer MEDICARE, OTHER, SELFPAY ==
[2023-11-25 07:11] LABS: % Basophils 0.6 % (0-2); % Eosinophils 3.4 % (0-6); % Immature Granulocytes 0.4 % (0-0.5); % Lymphocytes 25.1 % (20.5-51.1); % Monocytes 12.7 % (1.7-9.3); % Neutrophils 57.8 % (42.2-75.2); Absolute Eosinophils 0.2 10^3/uL (0-0.7); Absolute Lymphocytes 1.2 10^3/uL (1.2-3.4); Absolute Monocytes 0.6 10^3/uL (0.1-0.6); Absolute Neutrophils 2.9 10^3/uL (1.4-6.5); Hematocrit 34.5 % (39.0-52.0); Hemoglobin 11.8 g/dL (13.0-18.0); Mean Corp Hgb Conc. 34.2 g/dL (33.0-37.0); Mean Corpuscular Hgb 29.4 pg (27.0-31.0); Nucleated Red Blood Cells % 0 % (-); Platelet Count 172 10^3/uL (130-400); Red Blood Cell Count 4.01 10^6/uL (4.70-6.10); Red Cell Dist. Width 12.3 % (11.5-14.5)
[2023-11-25 07:53] LABS: ALT (SGPT) 114 U/L (0-50); AST (SGOT) 53 U/L (17-59); Albumin 4.2 g/dl (3.5-5.0); Alkaline Phosphatase 88 U/L (38-126); Blood Urea Nitrogen 66 mg/dl (9-20); Calcium 9.7 mg/dl (8.4-10.2); Carbon Dioxide 23 mmol/L (22-30); Chloride 104 mmol/L (98-107); Glucose 110 mg/dl (70-99); Potassium 4.2 mmol/L (3.5-5.1); Sodium 140 mmol/L (135-145); Total Bilirubin 0.6 mg/dl (0.2-1.3); eGFR 38.77
== END ==
LOC: REG 06:26
PROVIDERS: ATTENDING PHYSICIAN Physician Assistant
DX: N17.9 Acute kidney failure, unspecified (principal); D64.9 Anemia, unspecified; R79.89 Other specified abnormal findings of blood chemistry
CPT/HCPCS: 36415; 80053; 85025

== ENCOUNTER → 2023-11-29 08:12 | Outpatient (REF) | payer MEDICARE, OTHER, SELFPAY ==
[2023-11-29 08:34] LABS: % Basophils 1.1 % (0-2); % Eosinophils 2.7 % (0-6); % Immature Granulocytes 0.5 % (0-0.5); % Lymphocytes 22.1 % (20.5-51.1); % Monocytes 11.3 % (1.7-9.3); % Neutrophils 62.3 % (42.2-75.2); Absolute Basophils 0.1 10^3/uL (0-0.2); Absolute Eosinophils 0.1 10^3/uL (0-0.7); Absolute Monocytes 0.5 10^3/uL (0.1-0.6); Absolute Neutrophils 2.8 10^3/uL (1.4-6.5); Hematocrit 33.7 % (39.0-52.0); Hemoglobin 11.7 g/dL (13.0-18.0); Mean Corp Hgb Conc. 34.7 g/dL (33.0-37.0); Mean Corpuscular Hgb 29.5 pg (27.0-31.0); Mean Corpuscular Volume 84.9 fL (80.0-94.0); Mean Platelet Volume 10.2 fL (7.4-10.4); Nucleated Red Blood Cells % 0 % (-); Platelet Count 182 10^3/uL (130-400); Red Blood Cell Count 3.97 10^6/uL (4.70-6.10); Red Cell Dist. Width 12.4 % (11.5-14.5); White Blood Cell Count 4.4 10^3/uL (4.8-10.8)
[2023-11-29 09:04] LABS: ALT (SGPT) 147 U/L (0-50); AST (SGOT) 68 U/L (17-59); Alkaline Phosphatase 96 U/L (38-126); Blood Urea Nitrogen 62 mg/dl (9-20); Calcium 9.3 mg/dl (8.4-10.2); Carbon Dioxide 23 mmol/L (22-30); Chloride 108 mmol/L (98-107); Glucose 112 mg/dl (70-99); Potassium 4.4 mmol/L (3.5-5.1); Sodium 136 mmol/L (135-145); Total Bilirubin 0.7 mg/dl (0.2-1.3); Total Protein 7.1 g/dl (6.3-8.2); eGFR 36.33
== END ==
LOC: REG 08:12
PROVIDERS: ATTENDING PHYSICIAN Physician Assistant
DX: N17.9 Acute kidney failure, unspecified (principal); D64.9 Anemia, unspecified; R79.89 Other specified abnormal findings of blood chemistry
CPT/HCPCS: 36415; 80053; 85025

== ENCOUNTER → 2023-12-01 06:25 | Outpatient (REF) | payer MEDICARE, OTHER, SELFPAY ==
[2023-12-01 07:27] LABS: ALT (SGPT) 187 U/L (0-50); AST (SGOT) 80 U/L (17-59); Albumin 4.3 g/dl (3.5-5.0); Alkaline Phosphatase 104 U/L (38-126); Blood Urea Nitrogen 63 mg/dl (9-20); Calcium 9.5 mg/dl (8.4-10.2); Carbon Dioxide 24 mmol/L (22-30); Chloride 106 mmol/L (98-107); Glucose 112 mg/dl (70-99); Potassium 4.5 mmol/L (3.5-5.1); Sodium 137 mmol/L (135-145); Total Bilirubin 0.8 mg/dl (0.2-1.3); Total Protein 7.2 g/dl (6.3-8.2); eGFR 36.33
== END ==
LOC: REG 06:25
PROVIDERS: ATTENDING PHYSICIAN Physician Assistant
DX: R79.89 Other specified abnormal findings of blood chemistry (principal); N17.9 Acute kidney failure, unspecified
CPT/HCPCS: 36415; 80053

== ENCOUNTER → 2023-12-06 10:31 | Outpatient (REF) | payer MEDICARE, OTHER, SELFPAY ==
[2023-12-06 11:40] LABS: % Basophils 0.6 % (0-2); % Eosinophils 2.1 % (0-6); % Immature Granulocytes 0.6 % (0-0.5); % Lymphocytes 18.1 % (20.5-51.1); % Monocytes 11.4 % (1.7-9.3); % Neutrophils 67.2 % (42.2-75.2); Absolute Eosinophils 0.1 10^3/uL (0-0.7); Absolute Monocytes 0.6 10^3/uL (0.1-0.6); Absolute Neutrophils 3.5 10^3/uL (1.4-6.5); Hematocrit 32.3 % (39.0-52.0); Hemoglobin 11.2 g/dL (13.0-18.0); Mean Corp Hgb Conc. 34.7 g/dL (33.0-37.0); Mean Corpuscular Hgb 29.6 pg (27.0-31.0); Mean Corpuscular Volume 85.2 fL (80.0-94.0); Mean Platelet Volume 10.4 fL (7.4-10.4); Nucleated Red Blood Cells % 0 % (-); Platelet Count 205 10^3/uL (130-400); Red Blood Cell Count 3.79 10^6/uL (4.70-6.10); Red Cell Dist. Width 12.6 % (11.5-14.5); White Blood Cell Count 5.3 10^3/uL (4.8-10.8)
[2023-12-06 13:33] LABS: ALT (SGPT) 140 U/L (0-50); AST (SGOT) 55 U/L (17-59); Albumin 4.1 g/dl (3.5-5.0); Alkaline Phosphatase 91 U/L (38-126); Blood Urea Nitrogen 63 mg/dl (9-20); Calcium 8.9 mg/dl (8.4-10.2); Carbon Dioxide 20 mmol/L (22-30); Chloride 103 mmol/L (98-107); Glucose 93 mg/dl (70-99); Potassium 4.8 mmol/L (3.5-5.1); Sodium 132 mmol/L (135-145); Total Bilirubin 0.5 mg/dl (0.2-1.3); eGFR 44.65
== END ==
LOC: REG 10:31
PROVIDERS: ATTENDING PHYSICIAN Physician Assistant
DX: N17.9 Acute kidney failure, unspecified (principal); R79.89 Other specified abnormal findings of blood chemistry; D64.9 Anemia, unspecified
CPT/HCPCS: 36415; 80053; 85025

== ENCOUNTER 2023-12-09 05:57 | Day surgery (SDC) | payer MEDICARE, OTHER, SELFPAY ==
[2023-12-09] VITALS (9 sets, daily range): BP systolic 107–129; BP diastolic 63–83; BMI 22.2
== END 2023-12-09 14:08 | disposition home or self-care (01) ==
LOC: SDS 05:57
PROVIDERS: ATTENDING PHYSICIAN Internal Medicine Gastroenterology
DX: K31.89 Other diseases of stomach and duodenum (principal); D37.2 Neoplasm of uncertain behavior of small intestine; C7A.8 Other malignant neuroendocrine tumors
CPT/HCPCS: 43254; 43245; 88305; 88341; 88342; C1726

== ENCOUNTER 2023-12-09 23:47 | Emergency (ER) | payer MEDICARE, OTHER, SELFPAY ==
[2023-12-09 23:51] VITALS: BP 151/92
[2023-12-10 01:36] VITALS: BP 126/76
[2023-12-10 01:43] LABS: Urine Albumin Negative (Neg - Trace); Urine Bilirubin Negative (Negative); Urine Character Clear (Clear); Urine Color Yellow; Urine Glucose Negative (Negative); Urine Ketone Negative (Negative); Urine Leukocyte Negative (Negative); Urine Nitrite Negative (Negative); Urine Occult Blood Negative (Negative); Urine Urobilinogen Negative (Neg - 1+)
--- NOTE | 2023-12-10 02:06 | ED.GENMED ---
History of Present Illness
General
Chief Complaint: Urinary Symptoms
Source: patient
Exam Limitations: none
Time Seen by Provider: 12/10/23 01:02
Travel History
Have you had any contact with someone who has COVID-19?: No
Do you have any symptoms of coronavirus? Fever > 100 degrees, chills, cough, shortness of breath, sore throat, loss of taste or smell, muscle aches, or headache?: No
History of Present Illness
History of Present Illness:
This is a 73 year old male that comes in with c/o urinary retention. 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 States that he has had trouble like this in the past after having anesthesia. States that the last time that he
urinated was 11:30am and he left to go home form the hospital around 2pm. States that he was drinking and he kept thinking he would go. States that he is very uncomfortable. Denies any fever, chills, chest pain, SOB, nausea, vomiting, diarrhea,
headache, dizziness.
Past History
Past History
ED Past Medical History: Arrthythmia (Paroxysmal atrial fibrillation), CAD, Cancer (Skin CA) and Other (Diverticulosis, aortic stenosis, colon polyps, Lyme's disease, BPH, Cellulitis, )
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
Social History
Tobacco: Former smoker
Alcohol: None
Drug: None
Personal:
Living: with family
Employment: Retired
Family History
Family History: Other (Noncontributory)
Review of Systems
Review of Systems
All Other Systems: ROS reviewed and negative except as documented in HPI and ROS
Constitutional: Reports no symptoms; Denies fever or chills
EENT: Reports no symptoms
Respiratory: Reports no symptoms; Denies cough or trouble breathing
Cardiac: Reports no symptoms; Denies chest pain
ABD/GI: Reports abdominal pain; Denies nausea, vomiting or diarrhea
: Reports other (bladder distention)
Musculoskeletal: Reports no symptoms
Skin: Reports no symptoms
Neurological: Reports no symptoms; Denies dizzy or headache
Psychiatric: Reports no symptoms
Phy Exam
General Physical Exam
General Presentation: mild distress
General age: appears stated age
General Skin: warm and dry
General Habitus: normal
General Mental: alert
General Hydration: appears well hydrated
ENT Exam
ENT Exam: TM's normal, pharynx normal and neck supple
Eye Exam
Eye Exam: EOMI
Cardiovascular Exam
Cardiovascular Exam: regular rate/rhythm, no edema and normal peripheral pulses
Pulmonary Exam
Pulmonary Exam: lungs clear, no respiratory distress, no rales, chest non tender, no crackles, no rhonchi, no wheezing and no cough
Gastrointestinal Exam
Gastrointestinal Exam: normal bowel sounds, soft, no pulsatile mass and other (Bladder at the level of the naval)
Musculoskeletal Exam
Musculoskeletal Exam: full ROM and no edema
Skin Exam
Skin Exam: normal color, warm/dry, no rash and no petechia
Psychiatric Exam
Psychiatric Exam: normal mood/affect
Course
Orders/Labs/Results
Orders:
Orders
12/10/23 00:41
Lidocaine 2% [Lidocaine Uro-Jet 2%] 1 syringe .ROUTE .[facility]
12/10/23 01:33
Urinalysis Reflex To Culture Urgent
Date Specimen was Collected: 12/10/23
Time Specimen was Collected: 01:26
Urine negative for infection
Vital Signs
Initial and Last Documented VS:
Initial Vital Signs
Temp Pulse Resp BP Pulse Ox
97.2 F 73 19 151/92 100
12/09/23 23:51 12/09/23 23:51 12/09/23 23:51 12/09/23 23:51 12/09/23 23:51
Last Documented Vital Signs
Temp Pulse Resp BP Pulse Ox
97.2 F 72 20 126/76 98
12/09/23 23:51 12/10/23 01:36 12/10/23 01:36 12/10/23 01:36 12/10/23 01:36
MDM/Problems Addressed
Differential Diagnosis Includes:
Urinary retention
MDM/Problems Addressed:
This is a 73 year old male that comes in with c/o urinary retention. States that the last night he urinated was at 11am before he had an endoscopy for Duodenal tumor removal. States that he left the hospital at 2pm and he tried urinating at home but
was unable to go. States that now he is very uncomfortable.
Castañeda catheter placed and patient drained 1900ml of urine. Urine is negative for infection. Patient to follow up with Dr. Garcia in the morning. Return with any concerns.
Chronic conditions affecting care:
History of urinary retention
Acute Exacerbation and/or Progression of Chronic Illness:
Urinary retention
*Pulse Oximetry
Patient hypoxic: no
*EKG
Interpreted by ED Provider?: NA
Rate: EKG- N/A
*Subwarehouse Supervisor Interpretation
Rate: Subwarehouse Supervisor- N/A
*Critical Care Note
Total Time (30-74mins, 75-104mins- exclusive of procedures): Not Applicable
ED Attending Note
-
Portions of this chart may have been created with voice recognition software.� Occasional wrong word or��sound alike� substitutions may have occurred due to the inherent limitations of voice recognition software.
Discharge Plan
Departure
Patient Disposition: Home (Routine Discharge)
Date of Disposition: 12/10/23
Time of Disposition: 02:17
Patient with high blood pressure during this ER visit?: No
Condition: Good
Covid-19: Not Applicable
Discharge Problem:
Acute urinary retention
Instructions: How to Care for Your Castañeda Catheter, Male, Urinary Retention (DC)
Prescriptions:
No Action
finasteride 5 MG tablet
5 mg PO DAILY
Eliquis 5 MG tablet
5 mg PO BID Qty: 60 0RF
carvedilol 3.125 mg Tablet
3.125 mg PO BID
cholecalciferol (vitamin D3) [Vitamin D3] 50 mcg (2,000 unit) Tablet
50 mcg PO DAILY
famotidine 20 mg Tablet
10 mg PO DAILY Qty: 30 1RF
Referrals:
Carlos Aldana MD [Family Provider] -
Bobby Garcia MD [Active] - Tomorrow
Activity Restrictions/Additional Instructions:
As discussed, your urine was negative for infection. Please call the urologist tomorrow so you can have the catheter removed. Please increase your water intake to 8-8oz glasses daily. IF YOU HAVE ANY OTHER CONCERNS PLEASE RETURN TO THE EMERGENCY
ROOM
Interventions
Interventions:
*Risk Screen - Suicide Last Done: 12/09/23 23:51
*General Assessment Last Done: 12/09/23 23:51
*Neglect/Abuse Screening Last Done: 12/09/23 23:51
ED- Fall Risk Assessment Last Done: 12/10/23 01:10
*ED COVID-19 Vaccine History Last Done: 12/09/23 23:51
ED-Male Genitourinary Assessment Last Done: 12/10/23 01:10
[2023-12-10 02:30] VITALS: BP 116/74
== END 2023-12-10 03:30 | disposition home or self-care (01) ==
LOC: EMR 23:47
PROVIDERS: Clinical Nurse Specialist Family Health; EMERGENCY PHYSICIAN Student in an Organized Health Care Education/Training Program; FAMILY PHYSICIAN Family Medicine
DX: R33.9 Retention of urine, unspecified (principal); Z87.891 Personal history of nicotine dependence
CPT/HCPCS: 51702; 81003; 99283

== ENCOUNTER → 2023-12-13 09:22 | Outpatient (REF) | payer MEDICARE, OTHER, SELFPAY ==
[2023-12-13 10:17] LABS: % Basophils 0.5 % (0-2); % Eosinophils 2.9 % (0-6); % Immature Granulocytes 0.6 % (0-0.5); % Lymphocytes 15.7 % (20.5-51.1); % Neutrophils 67.3 % (42.2-75.2); Absolute Eosinophils 0.2 10^3/uL (0-0.7); Absolute Monocytes 0.8 10^3/uL (0.1-0.6); Absolute Neutrophils 4.4 10^3/uL (1.4-6.5); Hematocrit 31.8 % (39.0-52.0); Hemoglobin 10.7 g/dL (13.0-18.0); Mean Corp Hgb Conc. 33.6 g/dL (33.0-37.0); Mean Corpuscular Hgb 29.2 pg (27.0-31.0); Mean Corpuscular Volume 86.6 fL (80.0-94.0); Mean Platelet Volume 10.3 fL (7.4-10.4); Nucleated Red Blood Cells % 0 % (-); Platelet Count 206 10^3/uL (130-400); Red Blood Cell Count 3.67 10^6/uL (4.70-6.10); Red Cell Dist. Width 12.8 % (11.5-14.5); White Blood Cell Count 6.5 10^3/uL (4.8-10.8)
[2023-12-13 12:22] LABS: ALT (SGPT) 78 U/L (0-50); AST (SGOT) 37 U/L (17-59); Alkaline Phosphatase 94 U/L (38-126); Blood Urea Nitrogen 56 mg/dl (9-20); Calcium 9.5 mg/dl (8.4-10.2); Carbon Dioxide 24 mmol/L (22-30); Chloride 105 mmol/L (98-107); Glucose 80 mg/dl (70-99); Potassium 4.4 mmol/L (3.5-5.1); Sodium 135 mmol/L (135-145); Total Bilirubin 0.6 mg/dl (0.2-1.3); Total Protein 6.8 g/dl (6.3-8.2); eGFR 44.65
== END ==
LOC: REG 09:22
PROVIDERS: ATTENDING PHYSICIAN Physician Assistant
DX: D64.9 Anemia, unspecified (principal); N17.9 Acute kidney failure, unspecified
CPT/HCPCS: 36415; 80053; 85025

== ENCOUNTER → 2023-12-17 10:31 | Outpatient (REF) | payer MEDICARE, OTHER, SELFPAY | LOC: RAD 10:31 | PROVIDERS: ATTENDING PHYSICIAN Physician Assistant; FAMILY PHYSICIAN Physician Assistant | DX: R79.89 Other specified abnormal findings of blood chemistry (principal) | CPT/HCPCS: 76700 ==

== ENCOUNTER → 2024-01-04 10:56 | Outpatient (REF) | payer MEDICARE, OTHER, SELFPAY ==
[2024-01-04 12:20] LABS: ALT (SGPT) 47 U/L (0-50); AST (SGOT) 30 U/L (17-59); Albumin 3.9 g/dl (3.5-5.0); Alkaline Phosphatase 74 U/L (38-126); Blood Urea Nitrogen 46 mg/dl (9-20); Calcium 9.1 mg/dl (8.4-10.2); Carbon Dioxide 23 mmol/L (22-30); Chloride 106 mmol/L (98-107); Direct Bilirubin 0.2 mg/dl (0.0-0.4); Glucose 98 mg/dl (70-99); Potassium 4.5 mmol/L (3.5-5.1); Sodium 135 mmol/L (135-145); Total Bilirubin 0.6 mg/dl (0.2-1.3); Total Protein 6.6 g/dl (6.3-8.2); eGFR 41.52
== END ==
LOC: REG 10:56
PROVIDERS: ATTENDING PHYSICIAN Specialist; FAMILY PHYSICIAN Physician Assistant
DX: N17.9 Acute kidney failure, unspecified (principal)
CPT/HCPCS: 36415; 80053; 82248

== ENCOUNTER → 2024-01-24 07:24 | Outpatient (REF) | payer MEDICARE, OTHER, SELFPAY ==
[2024-01-24 08:10] LABS: % Basophils 0.8 % (0-2); % Eosinophils 2.7 % (0-6); % Immature Granulocytes 0.4 % (0-0.5); % Lymphocytes 21.6 % (20.5-51.1); % Monocytes 10.8 % (1.7-9.3); % Neutrophils 63.7 % (42.2-75.2); Absolute Eosinophils 0.1 10^3/uL (0-0.7); Absolute Lymphocytes 1.1 10^3/uL (1.2-3.4); Absolute Monocytes 0.5 10^3/uL (0.1-0.6); Absolute Neutrophils 3.1 10^3/uL (1.4-6.5); Hematocrit 33.6 % (39.0-52.0); Hemoglobin 10.8 g/dL (13.0-18.0); Mean Corp Hgb Conc. 32.1 g/dL (33.0-37.0); Mean Corpuscular Hgb 29.3 pg (27.0-31.0); Mean Corpuscular Volume 91.3 fL (80.0-94.0); Mean Platelet Volume 10.7 fL (7.4-10.4); Nucleated Red Blood Cells % 0 % (-); Platelet Count 172 10^3/uL (130-400); Red Blood Cell Count 3.68 10^6/uL (4.70-6.10); Red Cell Dist. Width 13.2 % (11.5-14.5); White Blood Cell Count 4.9 10^3/uL (4.8-10.8)
[2024-01-24 08:59] LABS: Iron 130 ug/dl (49-181)
[2024-01-24 09:00] LABS: ALT (SGPT) 36 U/L (0-50); AST (SGOT) 30 U/L (17-59); Albumin 4.3 g/dl (3.5-5.0); Alkaline Phosphatase 82 U/L (38-126); Blood Urea Nitrogen 36 mg/dl (9-20); Calcium 9.5 mg/dl (8.4-10.2); Carbon Dioxide 26 mmol/L (22-30); Chloride 104 mmol/L (98-107); Direct Bilirubin 0.2 mg/dl (0.0-0.4); Glucose 107 mg/dl (70-99); Potassium 4.8 mmol/L (3.5-5.1); Sodium 136 mmol/L (135-145); Total Bilirubin 0.5 mg/dl (0.2-1.3); eGFR 52.41
[2024-01-24 09:11] LABS: Percent Saturation 47 % (20-50); Total Iron Binding Capacity 275 ug/dl (261-462)
== END ==
LOC: REG 07:24
PROVIDERS: ATTENDING PHYSICIAN Physician Assistant; FAMILY PHYSICIAN Physician Assistant; OTHER PHYSICIAN Internal Medicine Hematology & Oncology; REFERRING PHYSICIAN Specialist
DX: E83.110 Hereditary hemochromatosis (principal); N17.9 Acute kidney failure, unspecified; R79.89 Other specified abnormal findings of blood chemistry
CPT/HCPCS: 36415; 80053; 82248; 82728; 83540; 83550; 85025

== ENCOUNTER → 2024-04-26 10:15 | Outpatient (REF) | payer MEDICARE, OTHER, SELFPAY ==
[2024-04-26 11:10] LABS: % Basophils 0.4 % (0-2); % Eosinophils 1.5 % (0-6); % Immature Granulocytes 0.4 % (0-0.5); % Lymphocytes 17.6 % (20.5-51.1); % Monocytes 11.2 % (1.7-9.3); % Neutrophils 68.9 % (42.2-75.2); Absolute Eosinophils 0.1 10^3/uL (0-0.7); Absolute Lymphocytes 0.9 10^3/uL (1.2-3.4); Absolute Monocytes 0.6 10^3/uL (0.1-0.6); Absolute Neutrophils 3.6 10^3/uL (1.4-6.5); Hematocrit 36.4 % (39.0-52.0); Hemoglobin 12.5 g/dL (13.0-18.0); Mean Corp Hgb Conc. 34.3 g/dL (33.0-37.0); Mean Corpuscular Hgb 29.8 pg (27.0-31.0); Mean Corpuscular Volume 86.7 fL (80.0-94.0); Mean Platelet Volume 10.7 fL (7.4-10.4); Nucleated Red Blood Cells % 0 % (-); Platelet Count 183 10^3/uL (130-400); Red Cell Dist. Width 12.3 % (11.5-14.5); White Blood Cell Count 5.3 10^3/uL (4.8-10.8)
[2024-04-26 11:45] LABS: Iron 118 ug/dl (49-181)
== END ==
LOC: REG 10:15
PROVIDERS: ATTENDING PHYSICIAN Internal Medicine Hematology & Oncology; FAMILY PHYSICIAN Family Medicine
DX: E83.110 Hereditary hemochromatosis (principal)
CPT/HCPCS: 36415; 82728; 83540; 85025

== ENCOUNTER → 2024-05-08 06:32 | Day surgery (SDC) | payer MEDICARE, OTHER, SELFPAY | LOC: GI 06:32 | PROVIDERS: ATTENDING PHYSICIAN Internal Medicine | DX: Z12.11 Encounter for screening for malignant neoplasm of colon (principal); K64.8 Other hemorrhoids; D12.3 Benign neoplasm of transverse colon; D12.4 Benign neoplasm of descending colon; Z86.010 Personal history of colon polyps | CPT/HCPCS: 45385; 45380; 88305 ==

== ENCOUNTER → 2024-08-02 08:53 | Outpatient (REF) | payer MEDICARE, OTHER, SELFPAY ==
[2024-08-02 10:55] LABS: % Basophils 0.6 % (0-2); % Eosinophils 3.2 % (0-6); % Immature Granulocytes 0.6 % (0-0.5); % Lymphocytes 22.5 % (20.5-51.1); % Monocytes 10.3 % (1.7-9.3); % Neutrophils 62.8 % (42.2-75.2); Absolute Eosinophils 0.2 10^3/uL (0-0.7); Absolute Lymphocytes 1.1 10^3/uL (1.2-3.4); Absolute Monocytes 0.5 10^3/uL (0.1-0.6); Hematocrit 39.7 % (39.0-52.0); Hemoglobin 13.2 g/dL (13.0-18.0); Mean Corp Hgb Conc. 33.2 g/dL (33.0-37.0); Mean Corpuscular Hgb 30.1 pg (27.0-31.0); Mean Corpuscular Volume 90.6 fL (80.0-94.0); Mean Platelet Volume 10.8 fL (7.4-10.4); Nucleated Red Blood Cells % 0 % (-); Platelet Count 176 10^3/uL (130-400); Red Blood Cell Count 4.38 10^6/uL (4.70-6.10); Red Cell Dist. Width 12.8 % (11.5-14.5); White Blood Cell Count 4.8 10^3/uL (4.8-10.8)
[2024-08-02 13:57] LABS: Iron 106 ug/dl (49-181)
== END ==
LOC: REG 08:53
PROVIDERS: ATTENDING PHYSICIAN Internal Medicine Hematology & Oncology; FAMILY PHYSICIAN Family Medicine
DX: E83.110 Hereditary hemochromatosis (principal)
CPT/HCPCS: 36415; 82728; 83540; 85025

== ENCOUNTER → 2024-08-14 16:26 | Outpatient (REF) | payer MEDICARE, OTHER, SELFPAY ==
[2024-08-14 18:34] LABS: PSA, Total - Diagnostic 4.13 ng/ml (0.0-4.0)
== END ==
LOC: REG 16:26
PROVIDERS: ATTENDING PHYSICIAN Specialist; FAMILY PHYSICIAN Family Medicine
DX: R97.20 Elevated prostate specific antigen [PSA] (principal)
CPT/HCPCS: 36415; 84153

== ENCOUNTER → 2024-11-22 09:48 | Outpatient (REF) | payer MEDICARE, OTHER, SELFPAY ==
[2024-11-22 11:23] LABS: % Basophils 0.4 % (0-2); % Eosinophils 1.8 % (0-6); % Immature Granulocytes 0.4 % (0-0.5); % Lymphocytes 18.7 % (20.5-51.1); % Monocytes 8.3 % (1.7-9.3); % Neutrophils 70.4 % (42.2-75.2); Absolute Eosinophils 0.1 10^3/uL (0-0.7); Absolute Monocytes 0.5 10^3/uL (0.1-0.6); Absolute Neutrophils 3.9 10^3/uL (1.4-6.5); Hematocrit 38.8 % (39.0-52.0); Hemoglobin 13.2 g/dL (13.0-18.0); Mean Corpuscular Hgb 29.5 pg (27.0-31.0); Mean Corpuscular Volume 86.8 fL (80.0-94.0); Mean Platelet Volume 10.4 fL (7.4-10.4); Nucleated Red Blood Cells % 0 % (-); Platelet Count 163 10^3/uL (130-400); Red Blood Cell Count 4.47 10^6/uL (4.70-6.10); Red Cell Dist. Width 12.6 % (11.5-14.5); White Blood Cell Count 5.6 10^3/uL (4.8-10.8)
[2024-11-22 12:11] LABS: Iron 130 ug/dl (49-181)
[2024-11-22 12:20] LABS: Percent Saturation 46 % (20-50); Total Iron Binding Capacity 278 ug/dl (261-462)
== END ==
LOC: RCS 09:48
PROVIDERS: ATTENDING PHYSICIAN Nurse Practitioner Gerontology; FAMILY PHYSICIAN Family Medicine; OTHER PHYSICIAN Internal Medicine Hematology & Oncology
DX: Z95.2 Presence of prosthetic heart valve (principal); E83.110 Hereditary hemochromatosis
CPT/HCPCS: 36415; 82728; 83540; 83550; 85025; 93306

== ENCOUNTER 2024-12-26 06:22 | Day surgery (SDC) | payer MEDICARE, OTHER, SELFPAY | END 2024-12-26 11:16 | disposition home or self-care (01) | LOC: GI 06:22 | PROVIDERS: ATTENDING PHYSICIAN Internal Medicine | DX: K30 Functional dyspepsia (principal); K31.7 Polyp of stomach and duodenum; K29.80 Duodenitis without bleeding; K31.89 Other diseases of stomach and duodenum; K29.50 Unspecified chronic gastritis without bleeding; K31.A0 Gastric intestinal metaplasia, unspecified | CPT/HCPCS: 43251; 43239; 88305; 88342 ==

== ENCOUNTER → 2025-02-22 10:54 | Outpatient (REF) | payer MEDICARE, OTHER, SELFPAY ==
[2025-02-22 12:36] LABS: PSA, Total - Diagnostic 3.68 ng/ml (0.0-4.0)
== END ==
LOC: REG 10:54
PROVIDERS: ATTENDING PHYSICIAN Specialist; FAMILY PHYSICIAN Family Medicine
DX: R97.20 Elevated prostate specific antigen [PSA] (principal)
CPT/HCPCS: 36415; 84153

== ENCOUNTER → 2025-08-03 07:59 | Outpatient (REF) | payer MEDICARE, OTHER, SELFPAY ==
[2025-08-03 08:32] LABS: Hematocrit 39.3 % (39.0-52.0); Hemoglobin 13.0 g/dL (13.0-18.0); Mean Corp Hgb Conc. 33.1 g/dL (33.0-37.0); Mean Corpuscular Volume 87.9 fL (80.0-94.0); Nucleated Red Blood Cells % 0 % (-); Platelet Count 162 10^3/uL (130-400); Red Cell Dist. Width 12.7 % (11.5-14.5)
[2025-08-03 09:13] LABS: ALT (SGPT) 23 U/L (0-50); AST (SGOT) 23 U/L (17-59); Albumin 4.3 g/dl (3.5-5.0); Alkaline Phosphatase 67 U/L (38-126); Blood Urea Nitrogen 29 mg/dl (9-20); Calcium 9.4 mg/dl (8.4-10.2); Carbon Dioxide 28 mmol/L (22-30); Chloride 101 mmol/L (98-107); Glucose 118 mg/dl (70-99); HDL Cholesterol 74 mg/dl; Iron 116 ug/dl (49-181); LDL Cholesterol, Calculated 136 mg/dl; Potassium 4.6 mmol/L (3.5-5.1); Sodium 133 mmol/L (135-145); Total Protein 7.1 g/dl (6.3-8.2); Very Low Density Lipoprotein 11 mg/dl (0-30); eGFR 47.65
[2025-08-03 09:39] LABS: PSA, Total - Screen 4.59 ng/ml (0.0-4.0); TSH 1.71 uIU/ml (0.47-4.68)
[2025-08-03 09:43] LABS: Ferritin 340.0 ng/ml (17.9-464.0)
== END ==
LOC: REG 07:59
PROVIDERS: ATTENDING PHYSICIAN Internal Medicine Hematology & Oncology; FAMILY PHYSICIAN Family Medicine
DX: Z95.2 Presence of prosthetic heart valve (principal); Z87.891 Personal history of nicotine dependence; I48.0 Paroxysmal atrial fibrillation; I10 Essential (primary) hypertension; I27.20 Pulmonary hypertension, unspecified; E78.00 Pure hypercholesterolemia, unspecified; E83.00 Disorder of copper metabolism, unspecified; E83.119 Hemochromatosis, unspecified; E83.110 Hereditary hemochromatosis; Z12.5 Encounter for screening for malignant neoplasm of prostate
CPT/HCPCS: 36415; 80053; 80061; 82728; 83540; 84443; 85025; G0103

== ENCOUNTER → 2025-09-11 09:50 | Outpatient (REF) | payer MEDICARE, OTHER, SELFPAY ==
[2025-09-11 11:43] LABS: PSA, Total - Diagnostic 3.35 ng/ml (0.0-4.0)
== END ==
LOC: REG 09:50
PROVIDERS: ATTENDING PHYSICIAN Specialist; FAMILY PHYSICIAN Family Medicine
DX: R97.20 Elevated prostate specific antigen [PSA] (principal)
CPT/HCPCS: 36415; 84153